=== PATIENT | female | born 1985 ===

== ENCOUNTER 2017-11-24 07:39 | Day surgery (SDC) | payer OTHER ==
[~2017-11-24] VITALS: Ht 165.1 cm; Wt 63.5 kg
[2017-11-24] MEDS ORDERED: ADDERALL XR 3030 MG ORAL (08:16)
[2017-11-24 08:19] VITALS: BP 109/76
[2017-11-24] MEDS ORDERED: Lidocaine 1% MPF 10mg/ml 5ml ONE (09:00)
[2017-11-24] MEDS ORDERED: Midazolam 2mg/2ml Inj ONE (09:00)
[2017-11-24] MEDS ORDERED: LR 1000ml ONE (09:00)
[2017-11-24] MEDS ORDERED: Propofol 200mg/20ml IV ONE (09:00)
--- NOTE | 2017-11-24 09:16 | Short Stay Surgery H&P ---
History of Present Illness History of Present Illness Chief Complaint see typed H&P HPI Ellyn Nicole is a 32 year old female who was admitted on for GERD Patient History Allergies: Uncoded Allergies: penicilin (Allergy, Intermediate, 11/24/17) hives Medication History Scheduled Amphet Asp/Amphet/D-Amphet (Adderall Xr 30 Mg Capsule), 30 MG ORAL DAILY, ( Reported) Physical Exam Vital Signs Last Vital Signs Date Time Temp Pulse Resp B/P (MAP) Pulse Ox O2 Delivery O2 Flow Rate FiO2 11/24/17 08:19 97.7 54 20 109/76 (87) 98 97.7 11/24/17 08:16 Room Air Labs Laboratory Tests Test 11/24/17 07:05 Urine HCG, Qualitative Negative (NEGATIVE) Plan Attestation Are the patient's medical conditions optimized for surgery? Radha Silva MD Nov 24, 2017 09:16
--- NOTE | 2017-11-24 09:17 | Pre-Procedure Note/Attestation ---
Pre-Procedure Note/Attestation Complete Prior to Procedure Planned Procedure: not applicable Procedure Narrative: EGD Indications for Procedure Pre-Operative Diagnosis: GERD Abd pain Attestation I attest that I discussed the nature of the procedure; its benefits; risks and complications; and alternatives (and the risks and benefits of such alternatives ), prior to the procedure, with the patient (or the patient's legal route sales representative). I attest that, if there was a reasonable possibility of needing a blood transfusion, the patient (or the patient's legal route sales representative) was given the [facility] standardized written summary, pursuant to the Baljinder Yazmin Blood Safety Act ([place] Health and Safety Code # 1645, as amended). I attest that I re-evaluated the patient just prior to the surgery and that there has been no change in the patient's H&P, except as documented below: Radha Silva MD Nov 24, 2017 09:17
[2017-11-24] MEDS ORDERED: LR 1000ml 1,000 ML IVLG SCH (09:31)
--- NOTE | 2017-11-24 09:39 | Anethesia Preoperative Eval ---
Anesthesia Pre-op PMH/ROS General Date of Evaluation: Nov 24, 2017 Time of Evaluation: 09:14 Anesthesiologist: Portillo ASA Score: ASA 1 Mallampati Score Class I : Soft palate, uvula, fauces, pillars visible Class II: Soft palate, uvula, fauces visible Class III: Soft palate, base of uvula visible Class IV: Only hard plate visible Mallampati Classification: Class I Surgeon: Jhoana Diagnosis: GERD Surgical Procedure: EGD Anesthesia History: none Family History: no anesthesia problems Allergies: Uncoded Allergies: penicilin (Allergy, Intermediate, 11/24/17) hives Medications: see eMAR Past Medical History Gastrointestinal/Genitourinary: Reports: GERD Neurologic/Psychiatric: Reports: depression/anxiety Anesthesia Pre-op Phys. Exam Physician Exam Last Vital Signs Date Time Temp Pulse Resp B/P (MAP) Pulse Ox O2 Delivery O2 Flow Rate FiO2 11/24/17 08:19 97.7 54 20 109/76 (87) 98 97.7 11/24/17 08:16 Room Air Constitutional: NAD Neurologic: CN 2-12 intact Cardiovascular: RRR Respiratory: CTA Gastrointestinal: S/NT/ND Airway Exam Mallampati Score: Class I MO: full ROM: full Teeth: intact Anesthesia Pre-op A/P Labs Urine Test Test 11/24/17 07:05 Urine HCG, Qualitative Negative (NEGATIVE) Risk Assessment & Plan Assessment: ASA 1 Plan: GA Status Change Before Surgery: No Usman Nath MD Nov 24, 2017 09:39
--- NOTE | 2017-11-24 09:40 | 48 Hour Post Anesthesia Eval ---
Post Anesthesia Evaluation Procedure: EGD Date of Evaluation: Nov 24, 2017 Time of Evaluation: 12:08 Blood Pressure Systolic: 118 0: 76 Pulse Rate: 78 Respiratory Rate: 18 Temperature (Fahrenheit): 98.4 O2 Sat by Pulse Oximetry: 100 Airway: patent Nausea: No Vomiting: No Pain Intensity: 1 Hydration Status: adequate Cardiopulmonary Status: Stable Mental Status/LOC: patient returned to baseline Follow-up Care/Observations: 0 Post-Anesthesia Complications: 0 Follow-up care needed: ready to discharge Usman Nath MD Nov 24, 2017 09:40
--- NOTE | 2017-11-24 09:40 | Immediate Post-Op Evaluation ---
Immediate Post-Op Evalulation Immediate Post-Op Evalulation Procedure: EGD Date of Evaluation: Nov 24, 2017 Time of Evaluation: 09:59 IV Fluids: 400 LR Blood Products: 0 Estimated Blood Loss: 1 Urinary Output: 0 Blood Pressure Systolic: 120 Blood Pressure Diastolic: 77 Pulse Rate: 77 Respiratory Rate: 16 O2 Sat by Pulse Oximetry: 100 Temperature (Fahrenheit): 97.7 Pain Score (1-10): 1 Nausea: No Vomiting: No Complications 0 Patient Status: awake, reacts, patent, none Hydration Status: adequate Usman Nath MD Nov 24, 2017 09:40
[2017-11-24] MEDS ORDERED: Metoclopramide 10mg/2ml Inj IVP PRN (09:45)
[2017-11-24] MEDS ORDERED: HYDROcodone/Acetamin 7.5/325 tab ORAL PRN (09:45)
[2017-11-24] MEDS ORDERED: Atropine Inj 1mg/10ml Syr IV PRN (09:45)
[2017-11-24] MEDS ORDERED: Midazolam 2mg/2ml Inj IVP PRN (09:45)
[2017-11-24] MEDS ORDERED: fentaNYL 100 mcg/2 mL IV PRN (09:45)
[2017-11-24] MEDS ORDERED: oxyCODONE HCL/Acetaminophen 5/325mg ORAL PRN (09:45)
[2017-11-24] MEDS ORDERED: Ketorolac 30mg Inj IV PRN ×2 (09:45)
[2017-11-24] MEDS ORDERED: Hydromorphone 0.5mg/0.5ml inj IVP PRN (09:45)
[2017-11-24] MEDS ORDERED: Norco 5mg/325mg tab ORAL PRN (09:45)
[2017-11-24] MEDS ORDERED: LORazepam Inj 2mg/ml 1ml IV PRN (09:45)
[2017-11-24] MEDS ORDERED: Labetalol 5mg/ml 20ml vial IV PRN (09:45)
[2017-11-24] MEDS ORDERED: DiphenhydrAMINE 50mg/ml Inj IVP PRN (09:45)
[2017-11-24 09:48] VITALS: BP 120/77
[2017-11-24 09:53] VITALS: BP 127/77
[2017-11-24 10:20] VITALS: BP 111/74
[2017-11-24 10:37] VITALS: BP 116/72
--- NOTE | 2017-11-24 17:15 | Procedure Note ---
DATE OF PROCEDURE: 11/24/2017 PROCEDURE: Upper gastrointestinal endoscopy with biopsy. SURGEON: Radha Silva M.D. ANESTHESIA: Please see the separate anesthesiologist notes for details. PRE-ENDOSCOPIC DIAGNOSES: Ongoing symptoms of abdominal pain, gastroesophageal reflux, and history of gastroparesis. POST-ENDOSCOPIC DIAGNOSES: 1. A faint single linear erosion in the lower esophagus suggestive of mild gastroesophageal reflux. 2. Status post random biopsies of the duodenum, antrum, proximal stomach, lower esophagus, and mid esophagus. RECOMMENDATIONS: 1. Followup biopsy results. 2. Outpatient followup for further instructions. 3. Reflux precautions. Thank you for asking me to participate in the care of this patient. Radha Silva M.D. DR: LOUIS JOB#: [id number] CC: James Hyatt M.D.; Fax#: [phone] [facility]
--- NOTE | 2017-11-25 13:26 | Endoscopy Procedure Note ---
Endoscopy Procedure Note General Indication for Procedure: abd pain Procedures Performed: EGD Operative Findings/Diagnosis: GERD Specimen: yes Pt Tolerated Procedure Well: Yes Estimated Blood Loss: none Anesthesia Anesthesiologist: see resport Anesthesia: MAC Medications Medication Given: see anesthesia record Inserted Devices Implant(s) used?: No GI Core Measures 50 yrs or older w/o bx or poly: Not Applicable 10yrs. F/U not recommended: Not Applicable If not recommended, why?: Radha Silva MD Nov 25, 2017 13:26
--- NOTE | 2017-11-25 13:27 | Brief Operative Note ---
Immediate Post Operative Note Operative Note Chief Complaint: abd pain Pre-op Diagnosis: GERD Abd pain Procedure: egd Post-op Diagnosis: 1. A faint single linear erosion in the lower esophagus suggestive of mild gastroesophageal reflux. 2. Status post random biopsies of the duodenum, antrum, proximal stomach, lower esophagus, and mid esophagus. Surgeon: rola Anesthesiologist: see report Anesthesia: MAC Specimen: yes Complications: none Condition: stable Fluids: recorded Estimated Blood Loss: none Drains: none Implant(s) used?: No Radha Silva MD Nov 25, 2017 13:27
--- NOTE | 2017-11-28 01:00 | Procedure Note ---
DATE OF PROCEDURE: 11/24/2017 PROCEDURE: Upper gastrointestinal endoscopy with biopsy. SURGEON: Radha Silva M.D. ANESTHESIA: Please see the separate anesthesiologist notes for details. PRE-ENDOSCOPIC DIAGNOSES: Ongoing symptoms of abdominal pain, gastroesophageal reflux, and history of gastroparesis. POST-ENDOSCOPIC DIAGNOSES: 1. A single linear erosion in the lower esophagus suggestive of mild gastroesophageal reflux. 2. Status post random biopsy of the duodenum, antrum, proximal stomach, lower esophagus, and mid esophagus. DESCRIPTION OF PROCEDURE: The procedure, its risks, indications, alternatives, and possible complications including, but not limited to, bleeding, infection, perforation, and anesthesia complications were explained to the patient and informed consent was obtained. The patient was then sedated in the left lateral decubitus position. A diagnostic upper endoscope was introduced through the oropharynx and advanced to the duodenum. The endoscope was then gradually withdrawn and the mucosa examined carefully. Examination of the upper gastric mucosa was as listed above. The patient was sent to recovery in good condition. COMPLICATIONS: None. RECOMMENDATIONS: 1. Followup biopsy results. 2. Outpatient followup for further instructions. 3. Reflux precautions. Thank you for asking me to participate in the care of this patient. Radha Silva M.D. DR: ODILON JOB#: [id number] CC: James Hyatt M.D.; Fax#: [phone]
== END 2017-11-24 10:50 | disposition home or self-care (01) ==
LOC: GAS 07:39
DX: K29.50 Unspecified chronic gastritis without bleeding (principal); K22.10 Ulcer of esophagus without bleeding; K21.9 Gastro-esophageal reflux disease without esophagitis; F41.9 Anxiety disorder, unspecified; F32.9 Major depressive disorder, single episode, unspecified; Z88.0 Allergy status to penicillin
CPT/HCPCS: 43239; 81025; J2250; J2704; J7120; 94003; 94150